=== PATIENT | female | born 1995 | race Two or more races ===

== ENCOUNTER 2020-08-17 12:57 | Observation (INO) | payer SELFPAY ==
[~2020-08-17] VITALS: Ht 162.6 cm; Wt 74.8 kg
[2020-08-17 15:35] LABS: Amphetamine Screen, Urine NEGATIVE (NEGATIVE); Barbiturate Scree,Urine NEGATIVE (NEGATIVE); Benzodiazephine Screen, Urine NEGATIVE (NEGATIVE); Cannabinoid Screen, Urine NEGATIVE (NEGATIVE); Cocaine Screen, Urine NEGATIVE (NEGATIVE); Opiate Scree,Urine NEGATIVE (NEGATIVE); Phencyclidine Screen, Urine NEGATIVE (NEGATIVE)
== END 2020-08-17 15:50 | disposition home or self-care (01) ==
LOC: XYW 12:57 → LDRP 13:00
PROVIDERS: ADMIT Specialist; ATTEND Specialist
DX: O62.9 Abnormality of forces of labor, unspecified (principal); Z3A.32 32 weeks gestation of pregnancy; Z79.899 Other long term (current) drug therapy
CPT/HCPCS: 59025; 76805; 80307; 81002; G0378

== ENCOUNTER 2020-09-22 15:22 | Observation (INO) | payer MEDICAID ==
[~2020-09-22] VITALS: Ht 167.6 cm; Wt 83.9 kg
[2020-09-22] MEDS ORDERED: TERBUTALINE SULFATE 1 MG/ML 1ML VIAL SC ONE (16:15)
[2020-09-22 18:15] LABS: Alcohol, Urine < 3.0 mg/dL (0-10); Amphetamine Screen, Urine NEGATIVE (NEGATIVE); Barbiturate Scree,Urine NEGATIVE (NEGATIVE); Benzodiazephine Screen, Urine NEGATIVE (NEGATIVE); Cannabinoid Screen, Urine NEGATIVE (NEGATIVE); Cocaine Screen, Urine NEGATIVE (NEGATIVE); Opiate Scree,Urine NEGATIVE (NEGATIVE); Phencyclidine Screen, Urine NEGATIVE (NEGATIVE)
== END 2020-09-22 17:04 | disposition home or self-care (01) ==
LOC: LDRP 15:22
PROVIDERS: ADMIT Obstetrics & Gynecology; ATTEND Obstetrics & Gynecology
DX: O26.893 Other specified pregnancy related conditions, third trimester (principal); R10.9 Unspecified abdominal pain; O62.9 Abnormality of forces of labor, unspecified; Z3A.37 37 weeks gestation of pregnancy; Z79.899 Other long term (current) drug therapy
CPT/HCPCS: 59025; 76815; 80307; 81002; G0378

== ENCOUNTER 2020-10-11 19:04 | Observation (INO) | payer MEDICAID ==
[~2020-10-11] VITALS: Ht 162.6 cm; Wt 72.6 kg
[2020-10-11] MEDS ORDERED: LACTATED RINGER'S 1,000 ML IV SCH (19:45)
[2020-10-11] MEDS ORDERED: LACTATED RINGER'S 1,000 ML IV ONE (20:30)
[2020-10-11 21:18] LABS: Basophils # (auto) 0 10 ^3/uL (0-0.2); Basophils % (auto) 0.3 % (0.0-2.0); Eosinophils # (auto) 0.4 10 ^3/uL (0-0.8); Eosinophils % (auto) 3.9 % (0.0-7.0); Hematocrit 33.1 % (36.0-46.0); Hemoglobin 10.8 g/dL (12.2-16.2); Lymphocytes # (auto) 2.3 10 ^3/uL (0.4-5.4); Lymphocytes % (auto) 21.6 % (10.0-50.0); Mean Corpuscular Hemoglobin 28.2 pg (28.0-32.0); Mean Corpuscular Hgb Conc. 32.7 g/dL (32.0-36.0); Mean Corpuscular Volume 86.3 fL (80.0-100.0); Monocytes # (auto) 0.8 10 ^3/uL (0-1.3); Monocytes % (auto) 7.4 % (0.0-12.0); Neutrophils % (auto) 66.8 % (37.0-80.0); Nucleated Red Blood Cells % 0.3 %; Platelet Count (auto) 166 10^3/uL (140-450); Red Blood Cells 3.83 10^6/uL (4.0-5.20); Red Cell Distribution Width 15.5 % (11.8-14.3); White Blood Cell 10.5 10^3/uL (4.4-10.8)
[2020-10-11 21:33] LABS: Albumin 2.6 g/dL (3.4-5.0); Calcium 8.6 mg/dL (8.5-10.1); Potassium 3.6 mmol/L (3.5-5.1); Uric Acid 5.2 mg/dL (2.6-6.0)
[2020-10-11 21:36] LABS: BUN/Creatinine Ratio 13.6; Bilirubin, Total 0.4 mg/dL (0.2-1.0); Total Protein 6.6 g/dL (6.4-8.2)
[2020-10-11 21:42] LABS: INR 0.94 (0.9-1.15)
[2020-10-11 21:54] LABS: Urine Bacteria FEW /hpf (None Seen); Urine Blood Negative /uL (Negative); Urine Specific Gravity 1.014 (1.001-1.035); Urine WBC 14 /hpf (0 - 5)
[2020-10-11 22:07] LABS: Alcohol, Urine < 3.0 mg/dL (0-10); Amphetamine Screen, Urine NEGATIVE (NEGATIVE); Barbiturate Scree,Urine NEGATIVE (NEGATIVE); Benzodiazephine Screen, Urine NEGATIVE (NEGATIVE); Cannabinoid Screen, Urine NEGATIVE (NEGATIVE); Cocaine Screen, Urine NEGATIVE (NEGATIVE); Opiate Scree,Urine NEGATIVE (NEGATIVE); Phencyclidine Screen, Urine NEGATIVE (NEGATIVE)
[2020-10-11] MEDS ORDERED: ACETAMINOPHEN 325 MG TAB PO ONE (23:55)
[2020-10-12] MEDS ORDERED: CEPH250C PO (01:27)
[2020-10-12] MEDS ORDERED: FERR1TAB36 PO (01:27)
[2020-10-13 06:07] LABS: RPR Non Reactive (Non Reactive)
[2020-10-13 07:06] LABS: Rubella Antibodies, IgG 1.53 index (Immune >0.99)
== END 2020-10-12 01:45 | disposition home or self-care (01) ==
LOC: LDRP 19:04
PROVIDERS: ADMIT Specialist; ATTEND Specialist
DX: O62.9 Abnormality of forces of labor, unspecified (principal); O26.893 Other specified pregnancy related conditions, third trimester; R51.9 Headache, unspecified; Z3A.39 39 weeks gestation of pregnancy; Z79.899 Other long term (current) drug therapy
CPT/HCPCS: 36415; 59025; 76805; 76818; 80053; 80307; 81001; 81002; 84550; 85025; 85610; 85730; 86592; 86703; 86762; 86850; 86900; 86901; 87081; 87340; 87491; 87591; 96360; 96361; G0378

== ENCOUNTER 2020-10-21 21:10 | Observation (INO) | payer MEDICAID ==
[~2020-10-21] VITALS: Ht 1 cm; Wt 0.0 kg
[~2020-10-21 21:10] MED LIST: CEPH-322 PO; FERR1TAB36 PO
[2020-10-22] MEDS ORDERED: PENICILLIN G POT 5MIL/D5 50ML 50 ML IV ONE (01:00)
[2020-10-22] MEDS ORDERED: DERMOPLAST 60ML BOTTLE TOP PRN (01:00)
[2020-10-22] MEDS ORDERED: PHISODERM TOP SOLN 240ML BTL TOP PRN (01:00)
[2020-10-22] MEDS ORDERED: LIDOCAINE 2%HCL (LOCAL ANESTH.) INJ 20ML MDV IJ ONE (01:00)
[2020-10-22] MEDS ORDERED: LACTATED RINGER'S 1,000 ML IV SCH (01:00)
[2020-10-22] MEDS ORDERED: WITCH HAZEL-GLYCERIN PAD TOP PRN (01:00)
[2020-10-22 01:45] LABS: Basophils # (auto) 0 10 ^3/uL (0-0.2); Basophils % (auto) 0.2 % (0.0-2.0); Eosinophils # (auto) 0.2 10 ^3/uL (0-0.8); Eosinophils % (auto) 2.3 % (0.0-7.0); Hemoglobin 11.4 g/dL (12.2-16.2); Lymphocytes # (auto) 2.7 10 ^3/uL (0.4-5.4); Lymphocytes % (auto) 25.9 % (10.0-50.0); Mean Corpuscular Hemoglobin 28.1 pg (28.0-32.0); Mean Corpuscular Hgb Conc. 32.6 g/dL (32.0-36.0); Mean Corpuscular Volume 86.2 fL (80.0-100.0); Monocytes # (auto) 0.8 10 ^3/uL (0-1.3); Monocytes % (auto) 7.3 % (0.0-12.0); Neutrophils # (auto) 6.7 10 ^3/uL (1.6-8.6); Neutrophils % (auto) 64.3 % (37.0-80.0); Nucleated Red Blood Cells % 0.2 %; Red Blood Cells 4.06 10^6/uL (4.0-5.20); White Blood Cell 10.4 10^3/uL (4.4-10.8)
[2020-10-22 01:49] LABS: Urine Bacteria MOD /hpf (None Seen); Urine Blood Negative /uL (Negative); Urine Specific Gravity 1.006 (1.001-1.035); Urine WBC 1 /hpf (0 - 5)
[2020-10-22 02:04] LABS: Albumin 2.8 g/dL (3.4-5.0); BUN/Creatinine Ratio 16.9; Calcium 8.7 mg/dL (8.5-10.1); INR 0.92 (0.9-1.15); Partial Thromboplastin Time 28.8 sec (23.0-31.2); Potassium 3.7 mmol/L (3.5-5.1)
[2020-10-22 02:07] LABS: Bilirubin, Total 0.4 mg/dL (0.2-1.0)
[2020-10-22 02:07] LABS: Alcohol, Urine < 3.0 mg/dL (0-10); Amphetamine Screen, Urine NEGATIVE (NEGATIVE); Barbiturate Scree,Urine NEGATIVE (NEGATIVE); Benzodiazephine Screen, Urine NEGATIVE (NEGATIVE); Cannabinoid Screen, Urine NEGATIVE (NEGATIVE); Cocaine Screen, Urine NEGATIVE (NEGATIVE); Opiate Scree,Urine NEGATIVE (NEGATIVE); Phencyclidine Screen, Urine NEGATIVE (NEGATIVE)
[2020-10-22] MEDS ORDERED: LACT. RINGERS/OXYTOCIN 20UNITS 500 ML IV ONE ×2 (03:00→03:30)
[2020-10-22] MEDS ORDERED: TERBUTALINE SULFATE 1 MG/ML 1ML VIAL SC ONE (03:00)
[2020-10-22] MEDS ORDERED: PENICILLIN G POTASSIUM 2,500,000 UNITS in D5W 5% 50 ML IV SCH (05:00)
[2020-10-23 07:06] LABS: RPR Non Reactive (Non Reactive)
== END 2020-10-22 05:40 | disposition home or self-care (01) ==
LOC: LDRP 21:10
PROVIDERS: ADMIT Specialist; ATTEND Specialist
DX: O36.63X0 Maternal care for excessive fetal growth, third trimester, not applicable or unspecified (principal); Z20.822 Contact with and (suspected) exposure to COVID-19; O48.0 Post-term pregnancy; Z79.899 Other long term (current) drug therapy; Z3A.49 Greater than 42 weeks gestation of pregnancy
CPT/HCPCS: 36415; 59025; 76805; 76818; 80053; 80307; 81001; 81002; 85025; 85610; 85730; 86592; 86850; 86900; 86901; 87426; 96361; 96365; G0378; J2540; J7060